=== PATIENT | female | born 1985 | race Caucasian/White ===

== ENCOUNTER 2016-11-07 06:05 | Day surgery (SDC) | payer OTHER ==
[~2016-11-07] VITALS: Ht 165.1 cm; Wt 81.1 kg
[2016-11-07] MEDS ORDERED: ESCITALOPRAM (07:02)
[2016-11-07 07:40] VITALS: BP 116/75; PULSE 71; RESP 20
[2016-11-07] MEDS ORDERED: MIDAZOLAM 1 MG/ML 2 ML INJ ONE (08:01)
--- NOTE | 2016-11-07 08:18 | OPPN ---
Date/Time of Note Date/Time of Note DATE: 11/07/16 TIME: 08:17 Operative Report Preoperative Diagnosis Chronic diarrhea Rectal bleeding Postoperative Diagnosis Normal terminal ileum Normal colonic mucosa Internal hemorrhoids Operation/Procedure Performed Colonoscopy and biopsy Anesthesia Type: MAC Estimated blood loss: none Transfusion Required: no Specimens Random colon biopsy Grafts/Implants: none Complications: no RONY DIAZ MD Nov 07, 2016 08:18
[2016-11-07] MEDS ORDERED: PROPOFOL 40 ML ONE (08:20)
--- NOTE | 2016-11-07 08:49 | GILP ---
DATE OF PROCEDURE: 11/07/2016 PROCEDURE PERFORMED: Colonoscopy and biopsy. PREOPERATIVE DIAGNOSES: 1. Chronic diarrhea. 2. Rectal bleeding. POSTOPERATIVE DIAGNOSES: 1. Colonoscopy all the way to the cecum and into the terminal. 2. Normal terminal ileum. 3. Normal colonic mucosa. 4. Random biopsies were taken to rule out microscopic colitis. 5. Internal hemorrhoids. INDICATION: Ms. Mis Richmond is a 31-year-old female patient who has chronic diarrhea and rectal bleeding. The patient was scheduled for colonoscopy for further evaluation. The procedure and possible complications were well explained to the patient and consent was obtained. DESCRIPTION OF PROCEDURE: Under influence of anesthesia, the colonoscope was carefully introduced into the rectum, and under direct vision, it was advanced all the way to the cecum, into the ileocecal valve, into the terminal ileum. FINDINGS: The terminal ilium was normal. The colonic mucosa was normal. Random biopsies were taken to rule out microscopic colitis. The patient was noted to have internal hemorrhoids. She tolerated the procedure very well. There was no complication from the procedure. At the end of procedure, she was awake with stable vital signs and she was discharged home in the care of her family. IMPRESSION: Please see postop diagnoses. PLAN: 1. Bentyl 10 mg p.o. t.i.d. a.c. 2. Anusol HC 2.5 percent cream at bedtime. 3. Await histopathology report. Dictated By: MD KIRSTEN Cervantes/efrain/[email or web address] /Document#: [id number] CC: Franko Bhatia MD;*[facility]*
[2016-11-07] MEDS ORDERED: ONDANSETRON 4 MG INJ ONE (08:58)
[2016-11-07] MEDS ORDERED: METOCLOPRAMIDE 10 MG INJ ONE (08:58)
== END 2016-11-07 18:11 | disposition home or self-care (01) ==
LOC: GIL 06:05
PROVIDERS: ATTEND Internal Medicine Gastroenterology
DX: K52.9 Noninfective gastroenteritis and colitis, unspecified (principal); K64.8 Other hemorrhoids
CPT/HCPCS: 45380; 84703; 88305; J2250; J2405; J2765; Z7610